=== PATIENT | male | born 1960 | race Caucasian/White ===

== ENCOUNTER 2017-05-13 18:30 | Outpatient (CLI) | payer OTHER | END 2017-05-13 18:31 | disposition home or self-care (01) | LOC: SLEEPLAB 18:30 | PROVIDERS: ATTEND Family Medicine | DX: G47.33 Obstructive sleep apnea (adult) (pediatric) (principal); R06.81 Apnea, not elsewhere classified; R06.83 Snoring; R53.83 Other fatigue; E11.9 Type 2 diabetes mellitus without complications; I10 Essential (primary) hypertension | CPT/HCPCS: 95806 ==

== ENCOUNTER 2017-06-09 07:56 | Outpatient (CLI) | payer OTHER ==
[2017-06-09] MEDS ORDERED: Gadobenate Dimeglumine 529 MG/1 ML (20ML VIAL) ONE (09:00)
--- NOTE | 2017-06-09 14:18 | MRI ---
MRI BRAIN WITH AND WITHOUT CONTRAST: CLINICAL HISTORY: Intracranial injury. Headache. COMPARISON: No prior comparison imaging. FINDINGS: There are nonspecific foci of signal alteration involving the bilateral cerebral hemispheres. No mas s effect or midline shift. No intracranial hemorrhage susceptibility. Ventricular system is within normal limits in size. No acute territorial infarction. Skull base flow voids are maintained. No e vidence of an enhancing intraaxial mass. IMPRESSION: 1. No acute intracranial abnormalities. 2. Foci of nonspecific signal alteration in the cerebral hemisphere, which may be on the basis [facility]. POS: [facility]
== END 2017-06-09 07:57 | disposition home or self-care (01) ==
LOC: SCSMRI 07:56
PROVIDERS: ATTEND Psychiatry & Neurology Neurology
DX: S06.890A Other specified intracranial injury without loss of consciousness, initial encounter (principal); R42 Dizziness and giddiness; R51 Headache
CPT/HCPCS: 70553; A9579